=== PATIENT | male | born 1945 | race Caucasian/White ===

== ENCOUNTER 2024-02-20 20:03 | Emergency (ER) | payer MEDICARE, SELFPAY ==
[2024-02-20] VITALS (26 sets, daily range): BP systolic 89–118; BP diastolic 54–59; PULSE 87–188; TEMP 36.7; O2SAT 92–96
--- NOTE | 2024-02-20 20:00 | ECG_ITS ---
[facility] Test Date: 2024-02-20 Pat Name: ALCON GUARDADO Department: Room: - Gender: Male Oral And Maxillofacial Surgery: : 1945 Requested By: [id number] Order Number: [id number] Reading MD: NANCY PEDRAZA Measurements Intervals Dixon Rate: 85 P: 67 MS: 164 QRS: 122 QRSD: 88 T: 42 QT: 350 QTc: 393 Interpretive Statements 1100 Sinus rhythm 5120 Possible right ventricular hypertrophy Low voltage across the precordium 9150 abnormal ECG No previous ECG available for comparison Electronically Signed On 02-21-2024 18:28:33 EDT by NANCY PEDRAZA
--- NOTE | 2024-02-20 20:17 | ED.NAVMDI1 ---
HPI - Nausea/Vomiting/Diarrhea General Chief complaint: Nausea/Vomiting/Diarrhea Stated complaint: UNKNOWN Time Seen by Provider: 02/20/24 20:08 Source: other Source comment: EMS Mode of arrival: ambulance Limitations: physical limitation History of Present Illness HPI Narrative: [facility] correction patient. Per nursing staff coffee ground emesis x 2 today. Denies abdominal pain. States did have BM today. No fever or chest pain. Related Data Home Medications ?Medication ?Instructions ?Recorded ?Confirmed acetaminophen 500 mg tablet (Pain 1,000 mg PO BID 02/20/24 02/20/24 Relief (acetaminophen)) aspirin 81 mg capsule 81 mg PO DAILY 02/20/24 02/20/24 cyanocobalamin (vitamin B-12) 1,000 mcg PO DAILY 02/20/24 02/20/24 1,000 mcg tablet doxazosin 4 mg tablet 4 mg PO DAILY 02/20/24 02/20/24 finasteride 5 mg tablet 5 mg PO DAILY 02/20/24 02/20/24 fluoxetine 40 mg capsule 40 mg PO DAILY 02/20/24 02/20/24 folic acid 1 mg tablet 1 mg PO DAILY 02/20/24 02/20/24 lenalidomide 25 mg capsule 25 mg PO DAILY 02/20/24 02/20/24 losartan 100 mg tablet (Cozaar) 100 mg PO DAILY 02/20/24 02/20/24 memantine 10 mg tablet 10 mg PO BID 02/20/24 02/20/24 metoprolol succinate 25 mg 25 mg PO DAILY 02/20/24 02/20/24 tablet,extended release 24 hr ondansetron HCl 4 mg tablet 4 mg PO Q8H 02/20/24 02/20/24 quetiapine 25 mg tablet (Seroquel) 25 mg PO BID 02/20/24 02/20/24 spironolactone 25 mg tablet 25 mg PO DAILY 02/20/24 02/20/24 (Aldactone) tolterodine 2 mg capsule,extended 2 mg PO DAILY 02/20/24 02/20/24 release 24 hr Allergies Allergy/AdvReac Type Severity Reaction Status Date / Time No Known Drug Allergies Allergy Verified 02/20/24 20:11 Review of Systems ROS Status of ROS 10 or more systems reviewed and unremarkable except as noted in history and below Exam Constitutional Vital Signs, click to edit/add: Last Vital Signs Temp 98.1 F 02/20/24 20:05 Pulse 99 H 02/21/24 00:50 Resp 24 H 02/21/24 00:50 BP 100/65 02/21/24 00:30 Pulse Ox 95 02/21/24 00:10 O2 Del Method Room Air 02/20/24 20:05 Common normals: no apparent distress, average body habitus, oriented x3, no limitations, healthy appearing, alert and well nourished [facility] Common normals: normocephalic and head/scalp atraumatic Eye Common normals: PERRL, EOMs intact bilaterally and conjunctivae normal Respiratory Common normals: normal respiratory effort, no retractions, no use of accessory muscles and clear to auscultation bilaterally Cardio Common normals: regular rate, regular rhythm, S1 normal heart sound and S2 normal heart sound GI Common normals: Normal to inspection, nondistended, normoactive bowel sounds present, soft to palpation and non-tender Other: rectal brown stool. anal verge appears normal Extremity Common normals: no joint enlargement Neuro Common normals: oriented x3 and CN's II-XII intact bilaterally Psych Appearance: grossly normal Course Vital Signs Vital signs: Vital Signs Temperature 98.1 F 02/20/24 20:05 Pulse Rate 91 H 02/20/24 20:05 Respiratory Rate 19 02/20/24 20:05 Blood Pressure 89/59 02/20/24 20:05 Pulse Oximetry 95 02/20/24 20:05 Oxygen Delivery Method Room Air 02/20/24 20:05 Temperature 98.1 F 02/20/24 20:05 Pulse Rate 99 H 02/21/24 00:50 Respiratory Rate 24 H 02/21/24 00:50 Blood Pressure 100/65 02/21/24 00:30 Pulse Oximetry 95 02/21/24 00:10 Oxygen Delivery Method Room Air 02/20/24 20:05 MDM - Nausea/Vomiting/Diarrhea MDM Narrative Medical decision making narrative: patient has past history of multiple myeloma for which he is receiving treatment at [facility]. Presents today from correction after coffee ground emesis x 2. Rectal exam with brown stool that his heme neg. NG placed by nursing and positive drainage of coffee ground material. BP 89 on admission. Improved to 100/55 after 1L of fluid. Discussed with GI at [facility] who is agreeable to transfer to [facility] for GI consultation. Hospitalist at [facility] paged discussed with hospitalist and patient accepted in transfer. Not able to transfuse blood here. Patient has an antigen detected by lab and would need to have sample sent out to obtain blood. Will take several hours Lab Data Labs: Lab Results 02/20/24 02/20/24 Range/Units 20:15 20:35 WBC 2.4 L (4.0-11.0) 10^3/uL RBC 1.40 L (4.70-6.10) 10^6/uL Hgb 4.7 L* (14.0-18.0) g/dL Hct 13.6 L* (42.0-54.0) % MCV 97.1 H (80.0-94.0) fL MCH 33.6 (25.9-34.0) pg MCHC 34.6 (29.9-35.2) g/dL RDW 21.2 H (11.0-15.0) % Plt Count 110 L (150-450) 10^3/uL MPV 9.6 (9.5-13.5) fL Neut % (Auto) 61.4 (43.0-75.0) % Lymph % (Auto) 26.3 (20.5-60.0) % [place] % (Auto) 10.7 (1.7-12.0) % Eos % (Auto) 1.2 (0.9-7.0) % Baso % (Auto) 0.0 L (0.2-2.0) % Neut # (Auto) 1.5 (1.4-6.5) 10^3/uL Lymph # (Auto) 0.6 L (1.2-3.8) 10^3/uL [place] # (Auto) 0.3 (0.3-0.8) 10^3/uL Eos # (Auto) 0.0 (0.0-0.7) 10^3/uL Baso # (Auto) 0.0 (0.0-0.1) 10^3/uL Abs Immat Gran (auto) 0.01 (0.00-0.03) 10^3/uL Imm/Tot Granulo (auto) 0.4 (0.0-0.5) % PT 11.2 (9.0-11.6) sec INR 1.06 Sodium 133 L (136-145) mmol/L Potassium 4.6 (3.5-5.1) mmol/L Chloride 97 L (98-107) mmol/L Carbon Dioxide 24.4 (21.0-32.0) mmol/L Anion Gap 16.2 BUN 77.0 H* (7.0-18.0) mg/dL Creatinine 1.81 H (0.70-1.30) mg/dL Est GFR ( Amer) 44 L (>=60) Est GFR (Non-Af Amer) 36 L (>=60) BUN/Creatinine Ratio 42.5 Glucose 142 H (74-106) mg/dL Lactate 1.9 (0.4-2.0) mmol/L Calcium 9.6 (8.5-10.1) mg/dL Total Bilirubin 0.4 (0.2-1.0) mg/dL AST 10 L (15-37) U/L ALT 15 L (16-63) U/L Alkaline Phosphatase 72 (46-116) U/L Total Protein 8.4 H (6.4-8.2) g/dL Albumin 2.7 L (3.4-5.0) g/dL Globulin 5.7 g/dL Albumin/Globulin Ratio 0.5 Stool Occult Blood Negative Discharge Plan Discharge Chief Complaint: Nausea/Vomiting/Diarrhea Clinical Impression: Acute upper GI bleed Prescriptions / Home Meds: No Action acetaminophen [Pain Relief (acetaminophen)] 500 mg tablet 1,000 mg PO BID aspirin 81 mg capsule 81 mg PO DAILY cyanocobalamin (vitamin B-12) 1,000 mcg tablet 1,000 mcg PO DAILY doxazosin 4 mg tablet 4 mg PO DAILY finasteride 5 mg tablet 5 mg PO DAILY fluoxetine 40 mg capsule 40 mg PO DAILY folic acid 1 mg tablet 1 mg PO DAILY losartan [Cozaar] 100 mg tablet 100 mg PO DAILY memantine 10 mg tablet 10 mg PO BID metoprolol succinate 25 mg tablet extended release 24 hr 25 mg PO DAILY ondansetron HCl 4 mg tablet 4 mg PO Q8H quetiapine [Seroquel] 25 mg tablet 25 mg PO BID spironolactone [Aldactone] 25 mg tablet 25 mg PO DAILY tolterodine 2 mg capsule,extended release 24hr 2 mg PO DAILY lenalidomide 25 mg capsule 25 mg PO DAILY Rx Instructions: swallow whole with glass of water; do not open, crush, chew , break, or dissolve Print Language: Turkmen Referrals: ALEX RUBIN [Primary Care Provider] - 1 week
[2024-02-20 20:31] LABS: Internal Control Within Normal Limits; Occult Blood Negative
[2024-02-20] MEDS: 0.9 % SODIUM CHLORIDE 1,000 ML 999 ML IV (20:43)
[2024-02-20 20:49] LABS: Eosinophils Percent Auto 1.2 % (0.9-7.0); Immature Granulocytes Abs Auto 0.01 10^3/uL (0.00-0.03); Immature Granulocytes Pct Auto 0.4 % (0.0-0.5); Lymphocytes Absolute Auto 0.6 10^3/uL (1.2-3.8); Lymphocytes Percent Auto 26.3 % (20.5-60.0); Mean Corpuscular HGB Conc 34.6 g/dL (29.9-35.2); Mean Corpuscular Hemoglobin 33.6 pg (25.9-34.0); Mean Corpuscular Volume 97.1 fL (80.0-94.0); Mean Platelet Volume 9.6 fL (9.5-13.5); Monocytes Absolute Auto 0.3 10^3/uL (0.3-0.8); Monocytes Percent Auto 10.7 % (1.7-12.0); Neutrophils Absolute Auto 1.5 10^3/uL (1.4-6.5); Neutrophils Percent Auto 61.4 % (43.0-75.0); Platelet Count 110 10^3/uL (150-450); Red Cell Distribution Width 21.2 % (11.0-15.0); White Blood Count 2.4 10^3/uL (4.0-11.0)
[2024-02-20 21:05] LABS: Alanine Aminotransferase 15 U/L (16-63); Albumin Globulin Ratio 0.5; Albumin Level 2.7 g/dL (3.4-5.0); Alkaline Phosphatase 72 U/L (46-116); Anion Gap 16.2; Aspartate Amino Transferase 10 U/L (15-37); BUN Creatinine Ratio 42.5; Bilirubin Total 0.4 mg/dL (0.2-1.0); Calcium 9.6 mg/dL (8.5-10.1); Carbon Dioxide 24.4 mmol/L (21.0-32.0); Chloride 97 mmol/L (98-107); Estimated GFR (African America 44 (>=60); Estimated GFR (Non-African Ame 36 (>=60); Globulin 5.7 g/dL; Glucose 142 mg/dL (74-106); Potassium 4.6 mmol/L (3.5-5.1); Sodium 133 mmol/L (136-145); Total Protein 8.4 g/dL (6.4-8.2)
--- NOTE | 2024-02-20 21:07 | XR_ITS ---
[address] [address] Patient Name: ALCON GUARDADO MRN: [id number] date: 1945 Sex: M Assigned Patient Location: ER Current Patient Location: ER Accession/Order Number: [id number] Exam Date: 02/20/2024 22:10 Report Date: 02/20/2024 23:00 At the request of: ALY HUNTER Procedure: XR chest 1V EXAM: XR chest 1V HISTORY: check NG placement COMPARISON: None. TECHNIQUE: Chest X-ray AP, 1 view FINDINGS: Support devices: Nasogastric tube is in place. Lungs/pleura: No consolidation, effusion, or pneumothorax. Heart and mediastinum: Normal contours. Bones: No acute abnormality identified. XR/XR chest 1V Impression: Nasogastric tube is in place. No radiographic evidence of acute cardiopulmonary process. Electronically authenticated by: TERESITA WEIR Date: 02/20/2024 23:00
[2024-02-20 21:08] LABS: Lactate/Lactic Acid 1.9 mmol/L (0.4-2.0)
[2024-02-20 21:13] LABS: Hematocrit 13.6 % (42.0-54.0); Hemoglobin 4.7 g/dL (14.0-18.0)
[2024-02-20] MEDS: PANTOPRAZOLE SODIUM 40 MG VIAL IV (21:40)
[2024-02-20] MEDS: BENZOCAINE 20% SPRAY 57 GM SPRAY CAN TOPICAL (22:17)
[2024-02-20 22:56] LABS: INR 1.06; Prothrombin Time 11.2 sec (9.0-11.6)
[2024-02-21] VITALS (26 sets, daily range): BP systolic 94–123; BP diastolic 46–71; PULSE 93–115; O2SAT 93–97
== END 2024-02-21 04:40 | disposition short-term general hospital (02) ==
PROVIDERS: Emergency Provider Internal Medicine; PCP Family Medicine
DX: K92.2 Gastrointestinal hemorrhage, unspecified (principal); C90.00 Multiple myeloma not having achieved remission; Z66 Do not resuscitate
CPT/HCPCS: 36415; 71045; 80053; 83605; 85025; 85610; 86850; 86900; 86901; 93005; 96361; 96374; 99285; G0328